=== PATIENT | female | born 1975 | race African-American/Black ===

== ENCOUNTER 2020-02-04 05:54 | Day surgery (SDC) | payer OTHER ==
[2020-02-03 17:22] VITALS: BMI 27.8
[2020-02-04] MEDS ORDERED: fentaNYL CITRATE 250 MCG/5 ML VIAL ONE (13:48)
[2020-02-04] MEDS ORDERED: SUCCINYLCHOLINE CHLORIDE 200 MG/10 ML SYRINGE ONE (13:48)
[2020-02-04] MEDS ORDERED: ROCURONIUM BROMIDE 50 MG/5 ML SYRINGE ONE (13:48)
[2020-02-04] MEDS ORDERED: PROPOFOL 20 ML ONE ×2 (13:48)
[2020-02-04] MEDS ORDERED: MIDAZOLAM HCL 2 MG/2 ML SINGLE DOSE VIAL ONE (13:48)
[2020-02-04] MEDS ORDERED: LIDOCAINE 1%/EPI 1:100000 (50 ML MULTI DOSE VIAL) ONE (14:06)
[2020-02-04] MEDS ORDERED: BUPIVACAINE HCL/PF 0.25% (2.5MG/ML) 10 ML VIAL ONE (14:06)
[2020-02-04] MEDS ORDERED: ceFAZolin SODIUM 1 GM VIAL IVPB ONE (14:30)
[2020-02-04] MEDS ORDERED: BACITRACIN 50,000 UNITS VIAL TP ONE (14:30)
[2020-02-04] MEDS ORDERED: MINERAL OIL 25 ML OIL TP ONE (14:40)
[2020-02-04] MEDS ORDERED: BACITRACIN 15 GM TUBE TOPICAL OINTMENT TP ONE (14:40)
[2020-02-04] MEDS ORDERED: BUPIVACAINE HCL/PF 2.5 MG/ML - 30 ML VIAL IJ ONE (14:40)
[2020-02-04] MEDS ORDERED: HYDROmorphone HCl 2 MG/ML VIAL ONE (15:02)
[2020-02-04] MEDS ORDERED: BACITRACIN 15 GM TUBE TOPICAL OINTMENT ONE (15:21)
[2020-02-04] MEDS ORDERED: NEOSTIGMINE METHYLSULFATE 0.5 MG/ML - 10 ML MDV ONE (15:40)
[2020-02-04] MEDS ORDERED: ONDANSETRON 4 MG/2 ML VIAL IVPUSH PRN (16:02)
[2020-02-04] MEDS ORDERED: oxyCODONE HCL 5 MG TABLET PO PRN ×2 (16:02)
[2020-02-04] MEDS ORDERED: DEXTROSE 5%-0.45% SALINE 1,000 ML IV SCH (16:15)
[2020-02-05] MEDS ORDERED: LEVOTHYROXINE NA 50 MCG TABLET (FP) PO SCH (07:00)
[2020-02-05 14:25] VITALS: BP 109/52; PULSE 98; TEMP 97.7
== END 2020-02-05 17:14 | disposition home or self-care (01) ==
LOC: JASU-SURG 05:54 → JASUSAT 05:54 → J6S 17:13 → JASUSAT 02-05 17:14
PROVIDERS: ATTEND Plastic Surgery
PROC: 0HRCX74 Replacement of Left Upper Arm Skin with Autologous Tissue Substitute, Partial Thickness, External Approach (ICD-10-PCS; 2020-02-04)
PROC: 0JBF0ZZ Excision of Left Upper Arm Subcutaneous Tissue and Fascia, Open Approach (ICD-10-PCS; 2020-02-04)
PROC: 0HRBX74 Replacement of Right Upper Arm Skin with Autologous Tissue Substitute, Partial Thickness, External Approach (ICD-10-PCS; principal; 2020-02-04 14:00)
PROC: 0HBHXZZ Excision of Right Upper Leg Skin, External Approach (ICD-10-PCS; 2020-02-04 14:00)
DX: T81.31XA Disruption of external operation (surgical) wound, not elsewhere classified, initial encounter (principal); Y83.8 Other surgical procedures as the cause of abnormal reaction of the patient, or of later complication, without mention of misadventure at the time of the procedure; Y92.9 Unspecified place or not applicable
CPT/HCPCS: 84703; 88304-TC; 94760

== ENCOUNTER 2021-01-15 13:38 | Emergency (ER) | payer OTHER ==
[2021-01-15 13:44] VITALS: BP 129/79; PULSE 91; BMI 29.7
[2021-01-15] MEDS ORDERED: ACETAMINOPHEN 1000 MG/100 ML VIAL IVPB ONE (14:37)
[2021-01-15] MEDS ORDERED: SODIUM CHLORIDE 1,000 ML IV STA (14:37)
[2021-01-15] MEDS ORDERED: ACETAMINOPHEN INJECTION 100 ML IVPB ONE (14:41)
[2021-01-15 15:23] LABS: BASO % 0.2 % (0-2.0); HEMATOCRIT 41.8 % (32.4-45.2); HEMOGLOBIN 13.9 GM/dL (10.7-15.3); MCH 28.7 pg (25.7-33.7); MCHC 33.2 g/dl (32.0-36.0); MEAN CELL VOLUME 86.3 fl (80-96); NEUT % 66.8 % (42.8-82.8); PLATELET COUNT 272 10^3/uL (134-434); RBC 4.84 M/mm3 (3.60-5.2); RDW 14.4 % (11.6-15.6); WHITE BLOOD COUNT 5.9 K/mm3 (4.0-10.0)
[2021-01-15 15:26] LABS: URINE APPEARANCE CLOUDY; URINE BILIRUBIN NEGATIVE (NEGATIVE); URINE COLOR YELLOW; URINE GLUCOSE (UA) NEGATIVE (NEGATIVE); URINE KETONE TRACE (NEGATIVE); URINE LEUK ESTERASE NEGATIVE (NEGATIVE); URINE NITRITE NEGATIVE (NEGATIVE); URINE PROTEIN NEGATIVE (NEGATIVE); URINE UROBILINOGEN 0.2 mg/dL (0.2-1.0)
[2021-01-15 15:28] LABS: HCG,QUALITATIVE URINE Negative
[2021-01-15 15:30] LABS: PROTHROMBIN TIME (PATIENT) 11.7 SEC (9.7-13.0)
[2021-01-15 15:44] LABS: BLOOD UREA NITROGEN 12.7 mg/dL (7-18); CALCIUM 9.4 mg/dL (8.5-10.1)
[2021-01-15 15:45] LABS: ALBUMIN 3.5 g/dl (3.4-5.0)
[2021-01-15 15:47] LABS: CREATININE 0.7 mg/dL (0.55-1.3)
[2021-01-15 15:49] LABS: BILIRUBIN,TOTAL 0.2 mg/dL (0.2-1); TOT PROT 7.4 g/dl (6.4-8.2)
[2021-01-15] MEDS ORDERED: KETOROLAC TROMETHAMINE 30 MG/1 ML VIAL ONE (17:55)
[2021-01-15] MEDS ORDERED: KETOROLAC TROMETHAMINE 30 MG/1 ML VIAL IVPUSH ONE (17:55)
== END 2021-01-15 18:37 | disposition home or self-care (01) ==
LOC: JER 13:38
PROC: 3E033GC Introduction of Other Therapeutic Substance into Peripheral Vein, Percutaneous Approach (ICD-10-PCS; principal; 2021-01-15)
DX: R10.31 Right lower quadrant pain (principal)
CPT/HCPCS: 36415; 74177-TC; 80053; 81003; 83690; 84703; 85025; 85610; 87086; 87491; 87591; 99285-25; J0131; Q9967

== ENCOUNTER 2023-11-30 22:23 | Inpatient (IN) | payer OTHER ==
[2023-11-30 22:32] VITALS: BMI 27.8
[2023-11-30] MEDS ORDERED: ACETAMINOPHEN INJECTION 100 ML ONE (23:25)
[2023-11-30 23:55] LABS: BASO % 0.4 % (0-2.0); EOS % 1.4 % (0-4.5); HEMATOCRIT 38.7 % (32.4-45.2); HEMOGLOBIN 12.5 GM/dL (10.7-15.3); LYMPH % 12.8 % (8-40); MCH 28.2 pg (25.7-33.7); MCHC 32.4 g/dl (32.0-36.0); MEAN CELL VOLUME 87.2 fl (80-96); MEAN PLT VOLUME 7.3 fl (7.5-11.1); NEUT % 73.4 % (42.8-82.8); PLATELET COUNT 418 10^3/uL (134-434); RBC 4.44 M/mm3 (3.60-5.2)
[2023-12-01] MEDS: SODIUM CHLORIDE 0.9% 500 ML INFUS.BAG IV ONE (00:16)
[2023-12-01] MEDS: ACETAMINOPHEN 1000 MG/100 ML BAG IVPB ONE (00:17)
[2023-12-01 00:23] LABS: POTASSIUM 3.9 mmol/L (3.5-5.1)
[2023-12-01 00:25] LABS: CALCIUM 8.7 mg/dL (8.5-10.1)
[2023-12-01 00:26] LABS: ALBUMIN 2.3 g/dl (3.4-5.0); BLOOD UREA NITROGEN 7.5 mg/dL (7-18)
[2023-12-01 00:29] LABS: CREATININE 0.7 mg/dL (0.55-1.3)
[2023-12-01 00:30] LABS: BILIRUBIN,TOTAL 0.2 mg/dL (0.2-1); TOT PROT 5.4 g/dl (6.4-8.2)
[2023-12-01 00:58] LABS: INR 1.04 (0.83-1.09); PROTHROMBIN TIME (PATIENT) 11.7 SEC (9.7-13.0)
[2023-12-01 01:01] LABS: ACTIVATED PTT 26.1 SECONDS (25.2-36.5)
[2023-12-01] MEDS ORDERED: PIPERACILLIN/TAZOB 4.5 GM 4.5 GM/100 ML BAG IVPB ONE (01:45)
[2023-12-01 01:53] LABS: ERYTHROCYTE SEDIMENTATION RATE 75 mm/hr (0-20)
[2023-12-01] MEDS: PIPERACILLIN/TAZOB 4.5 GM 4.5 GM in DEXTROSE 5%-WATER 100 ML IVPB ONE (01:54)
[2023-12-01] MEDS ORDERED: VANCOMYCIN 1 GRAM (PRE-DOCKED) 1,000 MG/250 ML BAG IVPB ONE (02:20)
[2023-12-01] MEDS ORDERED: KETOROLAC TROMETHAMINE 15 MG/ML VIAL ONE (02:22)
[2023-12-01] MEDS: KETOROLAC TROMETHAMINE 15 MG/ML VIAL IVPUSH ONE (02:38)
[2023-12-01] MEDS: VANCOMYCIN 1,000 MG in DEXTROSE 5%-WATER - 250 ML IVPB ONE (02:39)
[2023-12-01] MEDS ORDERED: SODIUM CHLORIDE 1,000 ML IV SCH (03:30)
[2023-12-01 06:01] VITALS: RESP 18
[2023-12-01] MEDS: LEVOTHYROXINE NA 75 MCG TABLET (FP) PO SCH (06:42)
[2023-12-01] MEDS: SODIUM CHLORIDE 1,000 ML IV SCH (06:44)
[2023-12-01] MEDS: INSULIN ASPART SLIDING SCALE (NOVOLOG) 1 VIAL SQ SCH (07:59)
[2023-12-01] MEDS ORDERED: PIPERACILLIN/TAZOB 3.375 GM 3.375 GM in DEXTROSE 5%-WATER - 50 ML IVPB SCH ×2 (08:00→10:00)
[2023-12-01] MEDS: ENOXAPARIN NA (PORCINE) 40 MG/0.4 ML DISP.SYRIN SQ SCH (09:14)
[2023-12-01] MEDS: LOSARTAN POTASSIUM 50 MG TABLET PO SCH (09:14)
[2023-12-01] MEDS: PIPERACILLIN/TAZOB 3.375 GM 3.375 GM in DEXTROSE 5%-WATER - 50 ML IVPB SCH (09:15)
[2023-12-01] MEDS: ACETAMINOPHEN 1000 MG/100 ML BAG IVPB PRN (11:02)
[2023-12-01] MEDS: SENNOSIDES 8.6MG TABLET (FP) PO SCH (13:49)
[2023-12-01] MEDS: oxyCODONE HCL 5 MG TABLET PO ONE (17:29)
[2023-12-01] MEDS: VANCOMYCIN/WATER FOR INJ (PEG) 1,000 MG/200 ML BAG IVPB SCH (21:40)
[2023-12-02] MEDS: oxyCODONE HCL 5 MG TABLET PO ONE (02:10)
[2023-12-02] MEDS ORDERED: IBUPROFEN 600 MG TABLET (FP) PO PRN (07:45)
[2023-12-02 09:34] LABS: BASO % 0.3 % (0-2.0); EOS % 1.9 % (0-4.5); HEMATOCRIT 34.8 % (32.4-45.2); HEMOGLOBIN 11.4 GM/dL (10.7-15.3); LYMPH % 10.1 % (8-40); MCH 28.9 pg (25.7-33.7); MCHC 32.9 g/dl (32.0-36.0); MEAN CELL VOLUME 88.1 fl (80-96); MEAN PLT VOLUME 7.4 fl (7.5-11.1); MONO % 10.5 % (3.8-10.2); NEUT % 77.2 % (42.8-82.8); PLATELET COUNT 417 10^3/uL (134-434); RBC 3.95 M/mm3 (3.60-5.2); RDW 14.3 % (11.6-15.6); WHITE BLOOD COUNT 10.1 K/mm3 (4.0-10.0)
[2023-12-02 09:44] LABS: POTASSIUM 4.2 mmol/L (3.5-5.1)
[2023-12-02 09:46] LABS: CALCIUM 7.8 mg/dL (8.5-10.1)
[2023-12-02 09:47] LABS: ALBUMIN 1.9 g/dl (3.4-5.0); BLOOD UREA NITROGEN 4.4 mg/dL (7-18); MAGNESIUM 1.7 mg/dL (1.8-2.4)
[2023-12-02 09:50] LABS: CREATININE 0.7 mg/dL (0.55-1.3); PHOSPHOROUS 2.8 mg/dL (2.5-4.9)
[2023-12-02 09:52] LABS: BILIRUBIN,TOTAL 0.3 mg/dL (0.2-1); TOT PROT 4.8 g/dl (6.4-8.2)
[2023-12-02] MEDS: POLYETHYLENE GLYCOL (HEALTHYLAX) 3350 17 GM PACKET PO ONE (10:15)
[2023-12-02] MEDS: ACETAMINOPHEN 325 MG TABLET (FP) PO SCH (10:16)
[2023-12-02] MEDS: ACETAMINOPHEN 325 MG TABLET (FP) PO ONE (10:19)
[2023-12-02] MEDS ORDERED: PIPERACILLIN/TAZOBACTAM 3.375 GM VIAL IVPB ONE (18:48)
[2023-12-02] MEDS: MELATONIN 5 MG TABLETS PO ONE (22:31)
[2023-12-03 09:05] VITALS: BP 127/67; PULSE 106; TEMP 99.3
[2023-12-03 10:12] LABS: HEMATOCRIT 35.6 % (32.4-45.2); HEMOGLOBIN 11.9 GM/dL (10.7-15.3); MCH 29.1 pg (25.7-33.7); MCHC 33.6 g/dl (32.0-36.0); MEAN CELL VOLUME 86.7 fl (80-96); MEAN PLT VOLUME 7.4 fl (7.5-11.1); PLATELET COUNT 424 10^3/uL (134-434); RDW 13.9 % (11.6-15.6); WHITE BLOOD COUNT 10.6 K/mm3 (4.0-10.0)
[2023-12-03 10:25] LABS: POTASSIUM 4.2 mmol/L (3.5-5.1)
[2023-12-03 10:32] LABS: BLOOD UREA NITROGEN 3.8 mg/dL (7-18); CALCIUM 8.4 mg/dL (8.5-10.1)
[2023-12-03 10:35] LABS: CREATININE 0.5 mg/dL (0.55-1.3)
[2023-12-03 10:36] LABS: PHOSPHOROUS 2.6 mg/dL (2.5-4.9)
[2023-12-03 10:37] LABS: BILIRUBIN,TOTAL 0.4 mg/dL (0.2-1); TOT PROT 5.2 g/dl (6.4-8.2)
== END 2023-12-03 13:25 | disposition home or self-care (01) | DRG 603 ==
LOC: JER 22:23 → JERBED 12-01 01:51 → J6S 12-01 03:57
PROVIDERS: ADMIT Internal Medicine; ATTEND Internal Medicine
DX: L03.116 Cellulitis of left lower limb (principal); L03.115 Cellulitis of right lower limb; E03.9 Hypothyroidism, unspecified; I10 Essential (primary) hypertension; E11.9 Type 2 diabetes mellitus without complications; Z94.5 Skin transplant status
CPT/HCPCS: 36415; 72193-TC; 73701-TC-RT; 80048; 80053; 82962; 83036; 83735; 84100; 84703; 85025; 85027; 85610; 85651; 85730; 86140; 86850; 86900; 86901; 87040; 87081; 93005; 93010; 93970-TC; 99285-25; J0131; Q9967

== ENCOUNTER 2023-12-06 14:52 | Inpatient (IN) | payer OTHER ==
[2023-12-06 16:55] LABS: EPI CELLS 27 /uL (0-25.1); HYALINE CASTS 2 /uL (0-3.1); URINE APPEARANCE CLOUDY; URINE BACTERIA 14 /uL (0-1359); URINE BILIRUBIN 1+ (NEGATIVE); URINE COLOR DK YELLOW; URINE GLUCOSE (UA) NEGATIVE (NEGATIVE); URINE KETONE 1+ (NEGATIVE); URINE LEUK ESTERASE TRACE (NEGATIVE); URINE NITRITE NEGATIVE (NEGATIVE); URINE PROTEIN 2+ (NEGATIVE); URINE WBC 11 /uL (0-25.8)
[2023-12-06 17:21] LABS: URINE CRYSTALS FEW CALCIUM OXALATES /hpf; URINE RBC 22.9 /uL (0-23.9)
[2023-12-06 17:30] LABS: HCG,QUALITATIVE URINE NEGATIVE
[2023-12-06] MEDS: SODIUM CHLORIDE 0.9% 1000 ML INFUS.BAG IV STA (17:32)
[2023-12-06] MEDS ORDERED: VANCOMYCIN 1 GRAM (PRE-DOCKED) 1,000 MG/250 ML BAG IVPB ONE ×2 (17:34→20:10)
[2023-12-06] MEDS ORDERED: PIPERACILLIN/TAZOB 4.5 GM 4.5 GM/100 ML BAG IVPB ONE (17:34)
[2023-12-06] MEDS: PIPERACILLIN/TAZOB 4.5 GM 4.5 GM in DEXTROSE 5%-WATER 100 ML IVPB ONE (17:40)
[2023-12-06 17:44] LABS: BASO % 0.6 % (0-2.0); EOS % 0.5 % (0-4.5); HEMATOCRIT 36.1 % (32.4-45.2); MCH 28.8 pg (25.7-33.7); MCHC 33.1 g/dl (32.0-36.0); MEAN CELL VOLUME 86.8 fl (80-96); MEAN PLT VOLUME 7.5 fl (7.5-11.1); MONO % 9.3 % (3.8-10.2); NEUT % 79.6 % (42.8-82.8); PLATELET COUNT 561 10^3/uL (134-434); RBC 4.16 M/mm3 (3.60-5.2); RDW 14.1 % (11.6-15.6); WHITE BLOOD COUNT 12.9 K/mm3 (4.0-10.0)
[2023-12-06 17:51] LABS: INR 1.08 (0.83-1.09); PROTHROMBIN TIME (PATIENT) 12.2 SEC (9.7-13.0)
[2023-12-06 17:54] LABS: ACTIVATED PTT 26.8 SECONDS (25.2-36.5)
[2023-12-06] MEDS ORDERED: ACETAMINOPHEN INJECTION 100 ML ONE (17:54)
[2023-12-06] MEDS: ACETAMINOPHEN 1000 MG/100 ML BAG IVPB ONE (18:00)
[2023-12-06 18:08] LABS: POTASSIUM 4.2 mmol/L (3.5-5.1)
[2023-12-06 18:10] LABS: ALBUMIN 2.4 g/dl (3.4-5.0); CALCIUM 8.9 mg/dL (8.5-10.1)
[2023-12-06 18:11] LABS: BLOOD UREA NITROGEN 6.9 mg/dL (7-18)
[2023-12-06 18:14] LABS: CREATININE 0.7 mg/dL (0.55-1.3)
[2023-12-06 18:15] LABS: BILIRUBIN,TOTAL 0.4 mg/dL (0.2-1); TOT PROT 6.2 g/dl (6.4-8.2)
[2023-12-06 18:27] LABS: VENOUS BASE EXCESS 1.5 mmol/L (-2-2); VENOUS O2 SATURATION 65.3 % (70-80); VENOUS PCO2 27.6 mmHg (38-52); VENOUS PH 7.534 (7.310-7.410)
[2023-12-06] MEDS: VANCOMYCIN 1,000 MG in DEXTROSE 5%-WATER - 250 ML IVPB ONE (21:29)
[2023-12-06] MEDS ORDERED: HYDROmorphone HCL CARPU-JECT 2 MG/1 ML DISP.SYRIN ONE (22:57)
[2023-12-06] MEDS ORDERED: ACETAMINOPHEN 325 MG TABLET (FP) ONE (23:01)
[2023-12-06] MEDS: HYDROmorphone HCL CARPU-JECT 2 MG/1 ML DISP.SYRIN IVPUSH ONE (23:07)
[2023-12-06] MEDS: SODIUM CHLORIDE 1,000 ML IV SCH (23:09)
[2023-12-06] MEDS: ACETAMINOPHEN 325 MG TABLET (FP) PO SCH (23:09)
[2023-12-07] MEDS ORDERED: ACETAMINOPHEN 325 MG TABLET (FP) ONE (04:47)
[2023-12-07] MEDS: LOPERAMIDE HCL 2 MG CAPSULE PO ONE (05:28)
[2023-12-07 06:42] LABS: BASO % 0.1 % (0-2.0); HEMATOCRIT 34.7 % (32.4-45.2); HEMOGLOBIN 11.2 GM/dL (10.7-15.3); LYMPH % 8.8 % (8-40); MCH 28.6 pg (25.7-33.7); MCHC 32.3 g/dl (32.0-36.0); MEAN CELL VOLUME 88.6 fl (80-96); MEAN PLT VOLUME 7.4 fl (7.5-11.1); MONO % 12.1 % (3.8-10.2); PLATELET COUNT 489 10^3/uL (134-434); RBC 3.92 M/mm3 (3.60-5.2); RDW 14.2 % (11.6-15.6); WHITE BLOOD COUNT 10.5 K/mm3 (4.0-10.0)
[2023-12-07 06:58] LABS: POTASSIUM 4.5 mmol/L (3.5-5.1)
[2023-12-07 07:04] LABS: BLOOD UREA NITROGEN 4.5 mg/dL (7-18); CALCIUM 8.2 mg/dL (8.5-10.1)
[2023-12-07 07:07] LABS: CREATININE 0.6 mg/dL (0.55-1.3)
[2023-12-07 07:08] LABS: PHOSPHOROUS 3.3 mg/dL (2.5-4.9)
[2023-12-07 07:09] LABS: BILIRUBIN,TOTAL 0.7 mg/dL (0.2-1); TOT PROT 5.2 g/dl (6.4-8.2)
[2023-12-07] MEDS ORDERED: LEVOTHYROXINE NA 75 MCG TABLET (FP) ONE (08:15)
[2023-12-07] MEDS: LEVOTHYROXINE NA 75 MCG TABLET (FP) PO SCH (10:06)
[2023-12-07] MEDS ORDERED: CEFTRIAXONE 1 GM/50 ML BAG ONE (10:08)
[2023-12-07] MEDS ORDERED: ENOXAPARIN NA (PORCINE) 40 MG/0.4 ML DISP.SYRIN SQ ONE (10:08)
[2023-12-07] MEDS ORDERED: LOSARTAN POTASSIUM 50 MG TABLET ONE (10:08)
[2023-12-07] MEDS: CEFTRIAXONE 1 GM in DEXTROSE 5%-WATER - 50 ML IVPB SCH (10:26)
[2023-12-07] MEDS: ENOXAPARIN NA (PORCINE) 40 MG/0.4 ML DISP.SYRIN SQ SCH (10:26)
[2023-12-07] MEDS: LOSARTAN POTASSIUM 50 MG TABLET PO SCH (10:26)
[2023-12-07] MEDS: SODIUM CHLORIDE 1,000 ML IV SCH (12:11)
[2023-12-07] MEDS: ACETAMINOPHEN 1000 MG/100 ML BAG IVPB PRN (14:49)
[2023-12-07] MEDS: PIPERACILLIN/TAZOB 4.5 GM 4.5 GM in DEXTROSE 5%-WATER 100 ML IVPB SCH (17:16)
[2023-12-07] MEDS: PANTOPRAZOLE SODIUM 40 MG VIAL IVPUSH ONE (23:36)
[2023-12-08] MEDS: SIMETHICONE 80 MG TAB.CHEW (FP) PO ONE (00:21)
[2023-12-08 09:03] LABS: BASO % 0.3 % (0-2.0); EOS % 1.2 % (0-4.5); HEMATOCRIT 33.6 % (32.4-45.2); LYMPH % 7.3 % (8-40); MCH 29.1 pg (25.7-33.7); MCHC 32.6 g/dl (32.0-36.0); MEAN CELL VOLUME 89.3 fl (80-96); MEAN PLT VOLUME 7.1 fl (7.5-11.1); MONO % 8.6 % (3.8-10.2); NEUT % 82.6 % (42.8-82.8); PLATELET COUNT 499 10^3/uL (134-434); RBC 3.76 M/mm3 (3.60-5.2); RDW 14.4 % (11.6-15.6); WHITE BLOOD COUNT 11.3 K/mm3 (4.0-10.0)
[2023-12-08 09:34] LABS: CALCIUM 8.3 mg/dL (8.5-10.1)
[2023-12-08 09:35] LABS: ALBUMIN 2.1 g/dl (3.4-5.0); BLOOD UREA NITROGEN 4.1 mg/dL (7-18)
[2023-12-08 09:38] LABS: CREATININE 0.6 mg/dL (0.55-1.3)
[2023-12-08 09:39] LABS: BILIRUBIN,TOTAL 0.3 mg/dL (0.2-1)
[2023-12-08 09:40] LABS: TOT PROT 5.4 g/dl (6.4-8.2)
[2023-12-08] MEDS: PANTOPRAZOLE 40 MG TABLET PO SCH (12:04)
[2023-12-08] MEDS: SIMETHICONE 80 MG TAB.CHEW (FP) PO PRN (12:04)
[2023-12-08 13:55] VITALS: BMI 31.8
[2023-12-08] MEDS: NAPROXEN 500 MG TABLET PO PRN (16:54)
[2023-12-09 08:19] LABS: BASO % 0.6 % (0-2.0); EOS % 1.8 % (0-4.5); HEMATOCRIT 34.5 % (32.4-45.2); HEMOGLOBIN 11.7 GM/dL (10.7-15.3); LYMPH % 13.4 % (8-40); MCH 29.3 pg (25.7-33.7); MCHC 33.8 g/dl (32.0-36.0); MEAN CELL VOLUME 86.8 fl (80-96); MEAN PLT VOLUME 7.1 fl (7.5-11.1); MONO % 10.3 % (3.8-10.2); NEUT % 73.9 % (42.8-82.8); PLATELET COUNT 552 10^3/uL (134-434); RBC 3.98 M/mm3 (3.60-5.2); RDW 14.3 % (11.6-15.6); WHITE BLOOD COUNT 7.9 K/mm3 (4.0-10.0)
[2023-12-09 08:22] LABS: POTASSIUM 4.6 mmol/L (3.5-5.1)
[2023-12-09 08:32] LABS: ALBUMIN 2.2 g/dl (3.4-5.0); BLOOD UREA NITROGEN 3.5 mg/dL (7-18); CALCIUM 8.4 mg/dL (8.5-10.1); MAGNESIUM 2.2 mg/dL (1.8-2.4)
[2023-12-09 08:34] LABS: CREATININE 0.6 mg/dL (0.55-1.3)
[2023-12-09 08:36] LABS: BILIRUBIN,TOTAL 0.6 mg/dL (0.2-1); TOT PROT 5.9 g/dl (6.4-8.2)
[2023-12-09] MEDS: ACETAMINOPHEN 325 MG TABLET (FP) PO PRN (13:54)
[2023-12-09] MEDS ORDERED: oxyCODONE HCL 5 MG TABLET PO PRN (16:35)
[2023-12-09] MEDS: MINERAL OIL/PET HY-PHL TOPICAL OINTMENT 454 GM JAR TP SCH (19:55)
[2023-12-10 09:47] VITALS: BP 124/74; PULSE 105; RESP 17; TEMP 98.2
[2023-12-10 10:46] LABS: BASO % 0.4 % (0-2.0); EOS % 2.6 % (0-4.5); HEMATOCRIT 33.3 % (32.4-45.2); HEMOGLOBIN 10.9 GM/dL (10.7-15.3); LYMPH % 16.2 % (8-40); MCH 28.4 pg (25.7-33.7); MCHC 32.6 g/dl (32.0-36.0); MEAN CELL VOLUME 87.1 fl (80-96); MEAN PLT VOLUME 7.2 fl (7.5-11.1); MONO % 11.6 % (3.8-10.2); NEUT % 69.2 % (42.8-82.8); PLATELET COUNT 567 10^3/uL (134-434); RBC 3.83 M/mm3 (3.60-5.2); RDW 14.3 % (11.6-15.6); WHITE BLOOD COUNT 6.3 K/mm3 (4.0-10.0)
[2023-12-10 11:26] LABS: POTASSIUM 4.5 mmol/L (3.5-5.1)
[2023-12-10 11:27] LABS: BLOOD UREA NITROGEN 3.9 mg/dL (7-18); CALCIUM 8.2 mg/dL (8.5-10.1)
[2023-12-10 11:28] LABS: MAGNESIUM 2.2 mg/dL (1.8-2.4)
[2023-12-10 11:31] LABS: CREATININE 0.7 mg/dL (0.55-1.3)
[2023-12-10 11:33] LABS: BILIRUBIN,TOTAL 0.3 mg/dL (0.2-1); TOT PROT 5.6 g/dl (6.4-8.2)
== END 2023-12-10 11:36 | disposition home or self-care (01) | DRG 867 ==
LOC: JER 14:52 → JERBED 19:00 → J7W 12-07 10:35
PROVIDERS: ADMIT Student in an Organized Health Care Education/Training Program
DX: T80.29XA Infection following other infusion, transfusion and therapeutic injection, initial encounter (principal); A41.9 Sepsis, unspecified organism; N10 Acute pyelonephritis; L03.116 Cellulitis of left lower limb; L03.115 Cellulitis of right lower limb; L03.317 Cellulitis of buttock; I10 Essential (primary) hypertension; R19.7 Diarrhea, unspecified; E03.9 Hypothyroidism, unspecified; R73.03 Prediabetes; K59.00 Constipation, unspecified; R33.9 Retention of urine, unspecified; D72.829 Elevated white blood cell count, unspecified; E66.9 Obesity, unspecified; Z68.31 Body mass index [BMI] 31.0-31.9, adult; Y83.9 Surgical procedure, unspecified as the cause of abnormal reaction of the patient, or of later complication, without mention of misadventure at the time of the procedure
CPT/HCPCS: 0241U-QW; 36415; 71045-TC-FY; 72146-TC; 72148-TC; 72195-TC; 74177-TC; 80053; 81003; 82803; 83036; 83605; 83735; 84100; 84484; 84703; 85025; 85610; 85730; 86850; 86900; 86901; 87040; 87086; 93005; 93010; 99285-25; J0131

== ENCOUNTER 2023-12-22 05:21 | Emergency (ER) | payer OTHER ==
[2023-12-22 05:32] VITALS: RESP 18; BMI 31.8
[2023-12-22 06:40] LABS: BASO % 0.9 % (0-2.0); EOS % 2.7 % (0-4.5); HEMATOCRIT 37.9 % (32.4-45.2); HEMOGLOBIN 12.3 GM/dL (10.7-15.3); LYMPH % 24.4 % (8-40); MCH 28.7 pg (25.7-33.7); MCHC 32.5 g/dl (32.0-36.0); MEAN CELL VOLUME 88.3 fl (80-96); MEAN PLT VOLUME 8.2 fl (7.5-11.1); MONO % 8.7 % (3.8-10.2); NEUT % 63.3 % (42.8-82.8); PLATELET COUNT 624 10^3/uL (134-434); RBC 4.29 M/mm3 (3.60-5.2); RDW 14.7 % (11.6-15.6); WHITE BLOOD COUNT 6.5 K/mm3 (4.0-10.0)
[2023-12-22 06:45] LABS: PROTHROMBIN TIME (PATIENT) 11.5 SEC (9.7-13.0)
[2023-12-22 06:47] LABS: ACTIVATED PTT 27.6 SECONDS (25.2-36.5)
[2023-12-22 07:24] LABS: BLOOD UREA NITROGEN 8.2 mg/dL (7-18); CALCIUM 9.1 mg/dL (8.5-10.1)
[2023-12-22 07:27] LABS: CREATININE 0.8 mg/dL (0.55-1.3)
[2023-12-22 07:28] LABS: TOT PROT 7.3 g/dl (6.4-8.2)
[2023-12-22] MEDS: PIPERACILLIN/TAZOB 3.375 GM 3.375 GM in DEXTROSE 5%-WATER - 50 ML IVPB ONE (07:29)
[2023-12-22] MEDS ORDERED: PIPERACILLIN/TAZOB 3.375 GM 3.375 GM/50 ML BAG IVPB ONE (07:29)
[2023-12-22 07:31] LABS: ALBUMIN 2.8 g/dl (3.4-5.0)
[2023-12-22 08:37] LABS: ERYTHROCYTE SEDIMENTATION RATE 81 mm/hr (0-20)
[2023-12-22 08:52] LABS: BILIRUBIN,TOTAL 0.7 mg/dL (0.2-1)
[2023-12-22 10:58] VITALS: BP 121/68; PULSE 93; TEMP 98.2
== END 2023-12-22 11:23 | disposition left against medical advice (07) ==
LOC: JER 05:21
DX: L03.317 Cellulitis of buttock (principal)
CPT/HCPCS: 36415; 80053; 83605; 85025; 85610; 85651; 85730; 86140; 99284-25

== ENCOUNTER 2024-03-23 14:39 | Inpatient (IN) | payer OTHER ==
[2024-03-23] MEDS ORDERED: QUEtiapine FUMARATE 25 MG TABLET PO ONE (16:11)
[2024-03-23] MEDS ORDERED: ACETAMINOPHEN 325 MG TABLET (FP) ONE (16:19)
[2024-03-23] MEDS ORDERED: KETOROLAC TROMETHAMINE 15 MG/ML VIAL ONE (16:19)
[2024-03-23] MEDS: KETOROLAC TROMETHAMINE 15 MG/ML VIAL IVPUSH ONE (16:39)
[2024-03-23] MEDS: ACETAMINOPHEN 500 MG TABLET (FP) PO ONE (16:39)
[2024-03-23 16:49] LABS: BASO % 0.3 % (0-2.0); EOS % 0.3 % (0-4.5); HEMATOCRIT 46.8 % (32.4-45.2); HEMOGLOBIN 15.3 GM/dL (10.7-15.3); MCH 28.5 pg (25.7-33.7); MCHC 32.7 g/dl (32.0-36.0); MEAN CELL VOLUME 86.9 fl (80-96); MEAN PLT VOLUME 8.3 fl (7.5-11.1); MONO % 6.9 % (3.8-10.2); NEUT % 88.5 % (42.8-82.8); PLATELET COUNT 347 10^3/uL (134-434); RBC 5.38 M/mm3 (3.60-5.2); RDW 15.1 % (11.6-15.6)
[2024-03-23 16:55] LABS: INR 0.95 (0.83-1.09); PROTHROMBIN TIME (PATIENT) 10.9 SEC (9.7-13.0)
[2024-03-23 16:58] LABS: ACTIVATED PTT 27.2 SECONDS (25.2-36.5)
[2024-03-23 17:08] LABS: POTASSIUM 4.3 mmol/L (3.5-5.1)
[2024-03-23 17:10] LABS: CALCIUM 9.6 mg/dL (8.5-10.1)
[2024-03-23 17:11] LABS: ALBUMIN 3.6 g/dl (3.4-5.0); BLOOD UREA NITROGEN 12.3 mg/dL (7-18)
[2024-03-23 17:14] LABS: CREATININE 0.8 mg/dL (0.55-1.3)
[2024-03-23 17:15] LABS: BILIRUBIN,TOTAL 0.4 mg/dL (0.2-1); TOT PROT 7.1 g/dl (6.4-8.2)
[2024-03-23 21:22] LABS: PH,URINE 7.5 (5.0-8.0); URINE APPEARANCE CLEAR; URINE BILIRUBIN NEGATIVE (NEGATIVE); URINE COLOR YELLOW; URINE GLUCOSE (UA) NEGATIVE (NEGATIVE); URINE KETONE NEGATIVE (NEGATIVE); URINE LEUK ESTERASE NEGATIVE (NEGATIVE); URINE NITRITE NEGATIVE (NEGATIVE); URINE PROTEIN NEGATIVE (NEGATIVE); URINE UROBILINOGEN 0.2 mg/dL (0.2-1.0)
[2024-03-23] MEDS: SODIUM CHLORIDE 0.9% 500 ML INFUS.BAG IV ONE (21:23)
[2024-03-23] MEDS ORDERED: CEFTRIAXONE 1 G/50 ML PREMIX 50 ML IVPB ONE (21:23)
[2024-03-23] MEDS ORDERED: MELATONIN 5 MG TABLETS ONE (21:30)
[2024-03-23] MEDS: MELATONIN 5 MG TABLETS PO ONE (21:32)
[2024-03-24] MEDS: ACETAMINOPHEN 325 MG TABLET (FP) PO ONE (01:42)
[2024-03-24] MEDS: SODIUM CHLORIDE 1,000 ML IV STA ×2 (01:42→03:58)
[2024-03-24] MEDS ORDERED: PIPERACILLIN/TAZOB 3.375 GM 3.375 GM/50 ML BAG IVPB ONE ×4 (03:59→18:49)
[2024-03-24] MEDS: PIPERACILLIN/TAZOB 3.375 GM 3.375 GM in DEXTROSE 5%-WATER - 50 ML IVPB SCH ×2 (04:00→10:46)
[2024-03-24] MEDS: LEVOTHYROXINE NA 75 MCG TABLET (FP) PO SCH (06:39)
[2024-03-24] MEDS ORDERED: LEVOTHYROXINE NA 75 MCG TABLET (FP) ONE (06:39)
[2024-03-24] MEDS: SODIUM CHLORIDE 1,000 ML IV SCH (06:43)
[2024-03-24] MEDS: INSULIN ASPART SLIDING SCALE (NOVOLOG) 1 VIAL SQ SCH (07:28)
[2024-03-24 07:42] LABS: HEMATOCRIT 37.3 % (32.4-45.2); HEMOGLOBIN 12.3 GM/dL (10.7-15.3); MCH 28.7 pg (25.7-33.7); MEAN CELL VOLUME 86.9 fl (80-96); MEAN PLT VOLUME 8.5 fl (7.5-11.1); PLATELET COUNT 257 10^3/uL (134-434); RBC 4.29 M/mm3 (3.60-5.2); RDW 15.2 % (11.6-15.6); WHITE BLOOD COUNT 18.8 K/mm3 (4.0-10.0)
[2024-03-24 07:55] LABS: POTASSIUM 3.5 mmol/L (3.5-5.1)
[2024-03-24 08:10] LABS: BLOOD UREA NITROGEN 8.6 mg/dL (7-18)
[2024-03-24 08:11] LABS: MAGNESIUM 1.7 mg/dL (1.8-2.4)
[2024-03-24 08:12] LABS: CREATININE 0.7 mg/dL (0.55-1.3)
[2024-03-24 08:13] LABS: ALBUMIN 2.5 g/dl (3.4-5.0); CALCIUM 7.9 mg/dL (8.5-10.1)
[2024-03-24 08:14] LABS: PHOSPHOROUS 3.8 mg/dL (2.5-4.9)
[2024-03-24 08:15] LABS: BILIRUBIN,TOTAL 0.5 mg/dL (0.2-1); TOT PROT 5.2 g/dl (6.4-8.2)
[2024-03-24 09:45] LABS: ANISOCYTOSIS 0; MACROCYTOSIS 0
[2024-03-24] MEDS ORDERED: ENOXAPARIN NA (PORCINE) 40 MG/0.4 ML DISP.SYRIN SQ ONE (10:44)
[2024-03-24] MEDS: ENOXAPARIN NA (PORCINE) 40 MG/0.4 ML DISP.SYRIN SQ SCH (10:46)
[2024-03-24] MEDS ORDERED: ACETAMINOPHEN 325 MG TABLET (FP) PO PRN (14:36)
[2024-03-24] MEDS ORDERED: ACETAMINOPHEN 325 MG TABLET (FP) ONE ×2 (15:03→20:01)
[2024-03-24] MEDS: PIPERACILLIN/TAZOB 3.375 GM 50 ML IVPB SCH (18:56)
[2024-03-24] MEDS ORDERED: MELATONIN 5 MG TABLETS PO ONE (20:00)
[2024-03-24] MEDS ORDERED: MELATONIN 5 MG TABLETS ONE (20:10)
[2024-03-24] MEDS ORDERED: ROSUVASTATIN CA 5 MG TABLET ONE (20:10)
[2024-03-24] MEDS: MELATONIN 5 MG TABLETS PO ONE (20:13)
[2024-03-24] MEDS: ROSUVASTATIN CA 10 MG TABLET PO SCH (21:00)
[2024-03-25 02:54] VITALS: BMI 34.2
[2024-03-25] MEDS: POTASSIUM CHLORIDE TABS 20 MEQ TABLET.ER (FP) PO ONE (12:06)
[2024-03-25] MEDS: MAGNESIUM OXIDE 400 MG TABLET (FP) PO ONE (12:30)
[2024-03-26] MEDS ORDERED: PIPERACILLIN/TAZOB 3.375 GM 3.375 GM in DEXTROSE 5%-WATER - 50 ML IVPB SCH (03:00)
[2024-03-26] MEDS ORDERED: INSULIN ASPART SLIDING SCALE (NOVOLOG) 1 VIAL SQ ONE (07:47)
[2024-03-26] MEDS: HYDROCHLOROTHIAZIDE 12.5 MG CAPSULE (FP) PO SCH (09:51)
[2024-03-26 11:44] LABS: BASO % 0.5 % (0-2.0); EOS % 2.1 % (0-4.5); HEMOGLOBIN 12.3 GM/dL (10.7-15.3); MCH 28.4 pg (25.7-33.7); MCHC 32.3 g/dl (32.0-36.0); MEAN CELL VOLUME 87.9 fl (80-96); MEAN PLT VOLUME 8.6 fl (7.5-11.1); MONO % 10.9 % (3.8-10.2); NEUT % 66.5 % (42.8-82.8); PLATELET COUNT 278 10^3/uL (134-434); RBC 4.32 M/mm3 (3.60-5.2); RDW 15.3 % (11.6-15.6)
[2024-03-26 12:01] LABS: ALBUMIN 2.3 g/dl (3.4-5.0); BLOOD UREA NITROGEN 4.1 mg/dL (7-18); CALCIUM 8.1 mg/dL (8.5-10.1); MAGNESIUM 2.1 mg/dL (1.8-2.4)
[2024-03-26 12:04] LABS: CREATININE 0.6 mg/dL (0.55-1.3)
[2024-03-26 12:05] LABS: TOT PROT 5.3 g/dl (6.4-8.2)
[2024-03-26 12:09] LABS: BILIRUBIN,TOTAL 0.2 mg/dL (0.2-1)
[2024-03-26] MEDS: MELATONIN 5 MG TABLETS PO PRN (20:31)
[2024-03-27 07:04] VITALS: TEMP 98.4
[2024-03-27 09:07] VITALS: BP 121/79; PULSE 83; RESP 17
[2024-03-27 09:50] LABS: BASO % 0.4 % (0-2.0); EOS % 2.4 % (0-4.5); HEMATOCRIT 39.7 % (32.4-45.2); HEMOGLOBIN 13.5 GM/dL (10.7-15.3); LYMPH % 21.6 % (8-40); MCH 29.2 pg (25.7-33.7); MCHC 33.9 g/dl (32.0-36.0); MEAN CELL VOLUME 86.1 fl (80-96); MEAN PLT VOLUME 8.4 fl (7.5-11.1); MONO % 7.3 % (3.8-10.2); NEUT % 68.3 % (42.8-82.8); PLATELET COUNT 315 10^3/uL (134-434); RBC 4.61 M/mm3 (3.60-5.2); WHITE BLOOD COUNT 4.9 K/mm3 (4.0-10.0)
[2024-03-27 10:05] LABS: POTASSIUM 4.2 mmol/L (3.5-5.1)
[2024-03-27 10:13] LABS: ALBUMIN 2.5 g/dl (3.4-5.0); BLOOD UREA NITROGEN 6.5 mg/dL (7-18); CALCIUM 8.7 mg/dL (8.5-10.1)
[2024-03-27 10:17] LABS: CREATININE 0.7 mg/dL (0.55-1.3)
[2024-03-27 10:18] LABS: TOT PROT 5.9 g/dl (6.4-8.2)
[2024-03-27 10:20] LABS: BILIRUBIN,TOTAL 0.4 mg/dL (0.2-1)
== END 2024-03-27 12:43 | disposition home or self-care (01) | DRG 603 ==
LOC: JER 14:39 → JERBED 21:52 → J8W 03-24 23:44 → OBSVTOIN 03-25 11:19
PROVIDERS: ADMIT Internal Medicine; ATTEND Nurse Practitioner Acute Care
DX: L03.115 Cellulitis of right lower limb (principal); I10 Essential (primary) hypertension; E03.9 Hypothyroidism, unspecified; E78.5 Hyperlipidemia, unspecified; R73.03 Prediabetes
CPT/HCPCS: 0241U-QW; 36415; 71045-TC-FY; 73701-TC-RT; 74177-TC; 80053; 81003; 82962; 83605; 83735; 84100; 84703; 85025; 85610; 85651; 85730; 86140; 86850; 86900; 86901; 87040; 87081; 87086; 93005; 93010; 93971-TC; 99285-25; G0378; Q9967